=== PATIENT | female | born 2000 | race Caucasian/White ===

== ENCOUNTER 2020-12-31 17:53 | Emergency (ER) | payer OTHER ==
[~2020-12-31] VITALS: Ht 167.6 cm; Wt 73.0 kg
[2020-12-31 17:53] VITALS: BP 125/75
--- NOTE | 2020-12-31 18:06 | PHYS DOC ---
"Past Medical History Past Medical History: Other (PSYCHOGENIC NONEPILEPTIC SEIZURE DISORDER) General Adult EDM: Chief Complaint: SEIZURE HPI: HPI: Patient is a 20 year old female who was brought here for evaluation of seizure. Patient has history of Psychogenic Nonepileptic Seizure disorder, is on three different medications for it, under the care with Neurologist at , Dr. Snow. She was out shopping with her mother at [facility]. She had her typical convulsion on the parking lot. Bystander called EMS, on route here, she had another convulsion episode. She was given 10 mg Versed IM. Upon arrival to the ER, patient had another convulsion episode, she was awake and alert the whole time. She did not have any bowel or bladder incontinence. Per her mom, Her neurologist instructed her or her family not call EMS if her convulsion does not last for 15 minutes. Review of Systems: Review of Systems: Constitutional: Denies fever or chills. [] Eyes: Denies change in visual acuity. [] HENT: Denies nasal congestion or sore throat. [] Respiratory: Denies cough or shortness of breath. [] Cardiovascular: Denies chest pain or edema. [] GI: Denies abdominal pain, nausea, vomiting, bloody stools or diarrhea. [] : Denies dysuria. [] Musculoskeletal: Denies back pain or joint pain. [] Integument: Denies rash. [] Neurologic: Denies headache, focal weakness or sensory changes. [] Endocrine: Denies polyuria or polydipsia. [] Lymphatic: Denies swollen glands. [] Psychiatric: Denies depression or anxiety. [] Heart Score: C/O Chest Pain: N/A Risk Factors: Risk Factors: DM, Current or recent (<one month) smoker, HTN, HLP, family history of CAD, obesity. Risk Scores: Score 0 - 3: 2.5% MACE over next 6 weeks - Discharge Home Score 4 - 6: 20.3% MACE over next 6 weeks - Admit for Clinical Observation Score 7 - 10: 72.7% MACE over next 6 weeks - Early Invasive Strategies Current Medications: Current Medications Medications (Trade) Dose Ordered Sig/Evelyn Start Time Stop Time Status Last Admin Dose Admin Levetiracetam 1000 mg/Dextrose 110 ml @ 440 mls/hr 1X ONCE 12/31/20 18:15 12/31/20 18:29 UNV Sodium Chloride 1,000 ml @ 1,000 mls/hr 1X ONCE 12/31/20 18:15 12/31/20 19:14 UNV Physical Exam: PE: Constitutional: Well developed, well nourished, no acute distress, non-toxic appearance. [] HENT: Normocephalic, atraumatic, bilateral external ears normal, oropharynx moist, no oral exudates, nose normal. [] Eyes: PERRLA, EOMI, conjunctiva normal, no discharge. [] Neck: Normal range of motion, no tenderness, supple, no stridor. [] Cardiovascular:Heart rate regular rhythm, no murmur [] Lungs & Thorax: Bilateral breath sounds clear to auscultation [] Abdomen: Bowel sounds normal, soft, no tenderness, no masses, no pulsatile masses. [] Skin: Warm, dry, no erythema, no rash. [] Back: No tenderness, no CVA tenderness. [] Extremities: No tenderness, no cyanosis, no clubbing, ROM intact, no edema. [] Neurologic: Alert and oriented X 3, normal motor function, normal sensory function, no focal deficits noted. [] Psychologic: Affect normal, judgement normal, mood normal. [] Current Patient Data: Labs: Laboratory Tests Test 12/31/20 18:02 White Blood Count 6.6 x10^3/uL Red Blood Count 4.31 x10^6/uL Hemoglobin 12.7 g/dL Hematocrit 37.9 % Mean Corpuscular Volume 88 fL Mean Corpuscular Hemoglobin 30 pg Mean Corpuscular Hemoglobin Concent 34 g/dL Red Cell Distribution Width 13.2 % Platelet Count 350 x10^3/uL Neutrophils (%) (Auto) 49 % Lymphocytes (%) (Auto) 39 % Monocytes (%) (Auto) 9 % Eosinophils (%) (Auto) 2 % Basophils (%) (Auto) 1 % Neutrophils # (Auto) 3.2 x10^3/uL Lymphocytes # (Auto) 2.6 x10^3/uL Monocytes # (Auto) 0.6 x10^3/uL Eosinophils # (Auto) 0.1 x10^3/uL Basophils # (Auto) 0.1 x10^3/uL Sodium Level 141 mmol/L Potassium Level 4.2 mmol/L Chloride Level 101 mmol/L Carbon Dioxide Level 30 mmol/L Anion Gap 10 Blood Urea Nitrogen 9 mg/dL Creatinine 0.8 mg/dL Estimated GFR (Cockcroft-Gault) 91.4 BUN/Creatinine Ratio 11 Glucose Level 86 mg/dL Calcium Level 9.0 mg/dL Magnesium Level 2.3 mg/dL Total Bilirubin 0.3 mg/dL Aspartate Amino Transf (AST/SGOT) 24 U/L Alanine Aminotransferase (ALT/SGPT) 37 U/L Alkaline Phosphatase 77 U/L Creatine Kinase 103 U/L Total Protein 7.9 g/dL Albumin 3.9 g/dL Albumin/Globulin Ratio 1.0 Current Medications Medications (Trade) Dose Ordered Sig/Evelyn Route PRN Reason Start Time Stop Time Status Last Admin Dose Admin Levetiracetam 1000 mg/Dextrose 110 ml @ 440 mls/hr 1X ONCE IV 12/31/20 18:15 12/31/20 18:29 DC 12/31/20 18:19 Sodium Chloride 1,000 ml @ 1,000 mls/hr 1X ONCE IV 12/31/20 18:15 12/31/20 19:14 12/31/20 18:18 Ondansetron HCl (Zofran) 4 mg 1X ONCE IVP 12/31/20 18:15 12/31/20 18:16 DC 12/31/20 18:18 Lorazepam (Ativan Inj) 2 mg 1X ONCE IVP 12/31/20 18:15 12/31/20 18:18 DC 12/31/20 17:58 Lorazepam (Ativan Inj) 1 mg 1X ONCE IVP 12/31/20 18:20 12/31/20 18:42 DC 12/31/20 18:21 EKG: EKG: EKG was done at 1812, heart rate of 78 bpm, NSR, NO STEMI Radiology/Procedures: Radiology/Procedures: [] Course & Med Decision Making: Course & Med Decision Making Pertinent Labs and Imaging studies reviewed. (See chart for details) Patient is a 20-year-old female with a history of psychogenic nonepileptic seizure disorder presented to ER due to convulsion. Lab work was normal patient was given Versed by EMS and couple doses of Ativan ER here patient vomited here to take her home, she will call her neurologist at for follow-up this week Finesse Disclaimer: Finesse Disclaimer: This electronic medical record was generated, in whole or in part, using a voice recognition dictation system. Departure Departure Impression: Primary Impression: Psychogenic nonepileptic seizure Disposition: 01 HOME / SELF CARE / HOMELESS Condition: IMPROVED Patient Instructions: Nonepileptic Seizures Additional Instructions: Please follow up with your Neurologist, Dr. Toni Snow at [facility] THIS WEEK. [address] [place] [address] | [phone] ADRIAN ARAUJO DO Dec 31, 2020 18:06"
[2020-12-31] MEDS ORDERED: IV NORMAL SALINE 1000ML BAG 1,000 ML IV ONE (18:15)
[2020-12-31] MEDS ORDERED: levETIRAcetam 1,000 MG in IV DEXTROSE 5% 100ML 100 ML IV ONE (18:15)
[2020-12-31] MEDS ORDERED: ONDANSETRON PF 4 MG/2 ML VIAL. IVP ONE (18:15)
[2020-12-31 18:17] LABS: BASO # 0.1 x10^3/uL (0.0-0.2); BASO % 1 % (0-3); EOS # 0.1 x10^3/uL (0.0-0.7); EOS % 2 % (0-3); HEMATOCRIT 37.9 % (36.0-47.0); HEMOGLOBIN 12.7 g/dL (12.0-15.5); LYMPH # 2.6 x10^3/uL (1.0-4.8); LYMPH % 39 % (24-48); MEAN CORPUSCULAR HEMOGLOBIN 30 pg (25-35); MEAN CORPUSCULAR HGB CONC 34 g/dL (31-37); MEAN CORPUSCULAR VOLUME 88 fL (79-100); MONO # 0.6 x10^3/uL (0.0-1.1); MONO % 9 % (0-9); NEUT # 3.2 x10^3/uL (1.8-7.7); NEUT % 49 % (31-73); PLATELET COUNT 350 x10^3/uL (140-400); RED BLOOD COUNT 4.31 x10^6/uL (3.50-5.40); RED CELL DISTRIBUTION WIDTH 13.2 % (11.5-14.5); WHITE BLOOD COUNT 6.6 x10^3/uL (4.0-11.0)
[2020-12-31 18:24] LABS: CREATININE 0.8 mg/dL (0.6-1.0); GFR 91.4; POTASSIUM 4.2 mmol/L (3.5-5.1)
[2020-12-31 18:30] LABS: ALBUMIN 3.9 g/dL (3.4-5.0); MAGNESIUM 2.3 mg/dL (1.8-2.4); TOTAL BILIRUBIN 0.3 mg/dL (0.2-1.0); TOTAL PROTEIN 7.9 g/dL (6.4-8.2)
--- NOTE | 2021-01-01 04:58 | EKG ---
[facility] [address] [place] [address] Test Date: 2020-12-31 Test Time: 18:12:39 Pat Name: CARA MIKE Department: Room: Gender: F Field Examiner: : [id number] Requested By: ADRIAN ARAUJO Order Number: [id number] Reading MD: Alexei Stroud Measurements Intervals [place] Rate: 78 P: 54 WV: 128 QRS: 46 QRSD: 68 T: 56 QT: 384 QTc: 441 Interpretive Statements SINUS RHYTHM Electronically Signed On 01-07-2021 10:41:27 LEAD FABRICATOR by Alexei Stroud
== END 2020-12-31 20:08 | disposition home or self-care (01) ==
LOC: ER 17:53
DX: F44.5 Conversion disorder with seizures or convulsions (principal)
CPT/HCPCS: 36415; 80053; 82550; 83735; 85025; 93005; 96365; 96375; 99284; J1953; J2060; J2405; J7030; J7060; 80177; 99285-25